=== PATIENT | female | born 2000 | race Caucasian/White ===

== ENCOUNTER 2021-05-25 19:08 | Inpatient (IN) | payer MEDICAID ==
[~2021-05-25] VITALS: Ht 154.9 cm; Wt 69.9 kg
[~2021-05-25 19:08] MED LIST: FERR325T6 MT; IBUP-2030 PO; PREN1TAB78 PO
[2021-05-26 00:40] LABS: BASOPHILS % 0.7 % (0.0-2.0); EOSINOPHILS % 1.8 % (0.0-5.0); HEMATOCRIT. 39.4 % (36.0-48.0); HEMOGLOBIN. 13.2 g/dL (12.0-16.0); LYMPHOCYTES % 27.8 % (20.0-50.0); MEAN CORPUSCULAR HEMOGLOBIN 28.2 pg (28.0-32.0); MEAN CORPUSCULAR VOLUME 84.4 fL (81.0-99.0); MONOCYTES % 9.1 % (2.0-8.0); NEUTROPHILS % 60.6 % (40.0-76.0); PLATELET 196 x1000/uL (130-400); RED BLOOD CELL COUNT 4.66 mill/uL (4.2-5.4); RED CELL DISTRIBUTION WIDTH 13.2 % (11.6-14.6)
[2021-05-26 00:49] LABS: CHLORIDE 110 mEq/L (98-107)
[2021-05-26 01:18] LABS: HCG SCREEN NEGATIVE
[2021-05-26] MEDS ORDERED: FAMOTIDINE 20MG/2ML VIAL IV STA (02:03)
[2021-05-26] MEDS ORDERED: ONDANSETRON HCL 4MG/2ML INJ IV STA (02:03)
[2021-05-26 02:13] LABS: CLARITY URINE CLEAR (CLEAR); COLOR URINE YELLOW (YELLOW); KETONES URINE NEGATIVE (NEGATIVE); LEUKOCYTE ESTERASE URINE NEGATIVE (NEGATIVE); NITRITE URINE NEGATIVE (NEGATIVE); OCCULT BLOOD URINE 3+ (NEGATIVE); PROTEIN URINE NEGATIVE (NEGATIVE); SPECIFIC GRAVITY URINE 1.019 (1.005-1.030)
[2021-05-26] MEDS ORDERED: SODIUM CHLORIDE 0.9% 1,000 ML IV ONE (02:15)
[2021-05-26] MEDS ORDERED: PIPERACILLIN/TAZ 3.375G PREMIX 50 ML IV ONE (03:15)
[2021-05-26] MEDS ORDERED: KETOROLAC 30MG/ML VIAL IV PRN (17:45)
[2021-05-26] MEDS ORDERED: ACETAMINOPHEN 325MG TABLET PO PRN (17:45)
[2021-05-26] MEDS: ONDANSETRON HCL 4MG/2ML INJ IV PRN (19:52)
[2021-05-26 22:00] VITALS: BP 109/80
[2021-05-27] VITALS: BP 99/45
[2021-05-27 04:00] VITALS: BP 99/63
[2021-05-27 06:29] LABS: CHLORIDE 109 mEq/L (98-107)
[2021-05-27] MEDS ORDERED: BUPIVACAINE HCL/PF 0.5% (5MG/ML) 10ML ONE (06:50)
[2021-05-27] MEDS ORDERED: POLYMYXIN B SULFATE 500000 UNITS/VIAL ONE (06:50)
[2021-05-27] MEDS ORDERED: LIDOCAINE HCL 1% 10 MG/ML 10ML VIAL ONE (06:50)
[2021-05-27] MEDS ORDERED: INDOCYANINE GREEN 25 MG VIAL IV ONE (06:50)
[2021-05-27] MEDS ORDERED: NEOSTIGMINE METHYLSULFATE 1MG/ML 10 ML VIAL ONE (07:58)
[2021-05-27] MEDS ORDERED: PHENYLEPHRINE HCL 10 MG/ML 1ML (IV VIAL) IV ONE (07:58)
[2021-05-27] MEDS ORDERED: SODIUM CHLORIDE 0.9% 10ML VIAL ONE (07:58)
[2021-05-27] MEDS ORDERED: METOCLOPRAMIDE HCL 10MG/2ML VIAL ONE (07:58)
[2021-05-27] MEDS ORDERED: SUCCINYLCHOLINE CHLORIDE 200MG/10ML IV ONE (07:58)
[2021-05-27] MEDS ORDERED: FENTANYL CITRATE/PF 50MCG/ML 2ML VIAL ONE ×2 (07:58→08:28)
[2021-05-27] MEDS ORDERED: DEXAMETHASONE 4MG/ML 1ML VIAL ONE (07:58)
[2021-05-27] MEDS ORDERED: PROPOFOL 200MG/20ML VIAL IV ONE (07:58)
[2021-05-27] MEDS ORDERED: MIDAZOLAM HCL 2 MG/2 ML VIAL ONE (07:58)
[2021-05-27] MEDS ORDERED: GLYCOPYRROLATE 0.2 MG/ML 2ML VIAL ONE (07:58)
[2021-05-27] MEDS ORDERED: CEFAZOLIN SODIUM 1000MG/VIAL ONE (07:58)
[2021-05-27] MEDS ORDERED: ONDANSETRON HCL 4MG/2ML INJ ONE (07:58)
[2021-05-27] MEDS ORDERED: ROCURONIUM BROMIDE 10MG/ML VIAL 5ML IV ONE (07:58)
[2021-05-27] MEDS ORDERED: SKIN ADHESIVE 0.7 GM EA TOP ONE (09:01)
[2021-05-27] MEDS ORDERED: KETOROLAC 30MG/ML VIAL ONE (09:25)
[2021-05-27] MEDS ORDERED: NALOXONE HCL 0.4MG/ML VIAL IV PRN (10:15)
[2021-05-27] MEDS ORDERED: HYDROCODONE/ACETAMINOPHEN 5/325MG TABLET PO PRN (10:15)
[2021-05-27] MEDS: ONDANSETRON HCL 4MG/2ML INJ IV PRN (11:15)
[2021-05-27 12:00] VITALS: BP 104/55
[2021-05-27 14:08] VITALS: BP 98/53
== END 2021-05-27 14:49 | disposition home or self-care (01) | DRG 263 ==
LOC: ER 19:08 → EDBEDREQ 05-26 05:34 → EDBEDREQTM 05-26 05:34 → ENRESERV 05-26 20:20 → 7EST 05-26 21:09
PROVIDERS: ADMIT Internal Medicine; ATTEND Internal Medicine
PROC: 0FT44ZZ Resection of Gallbladder, Percutaneous Endoscopic Approach (ICD-10-PCS; principal; 2021-05-27)
PROC: 8E0W4CZ Robotic Assisted Procedure of Trunk Region, Percutaneous Endoscopic Approach (ICD-10-PCS; 2021-05-27)
DX: K80.12 Calculus of gallbladder with acute and chronic cholecystitis without obstruction (principal); E87.8 Other disorders of electrolyte and fluid balance, not elsewhere classified; R74.01 Elevation of levels of liver transaminase levels; Z20.822 Contact with and (suspected) exposure to COVID-19; K82.8 Other specified diseases of gallbladder; Z98.891 History of uterine scar from previous surgery; Z79.1 Long term (current) use of non-steroidal anti-inflammatories (NSAID); Z79.899 Other long term (current) drug therapy
CPT/HCPCS: 36415; 76705; 80053; 81003; 81025; 83605; 84703; 85025; 87426; 88304; 96361; 96365; 96375; 99285; J0330; J0690; J1100; J1885; J2250; J2370; J2405; J2543; J2704; J2710; J2765; J3010; J3490; J7030; Q9957

== ENCOUNTER 2023-03-08 04:01 | Inpatient (IN) | payer MEDICAID ==
[~2023-03-08] VITALS: Ht 154.9 cm; Wt 72.6 kg
[2023-03-08] MEDS ORDERED: MISOPROSTOL 100MCG TABLET VG SCH (04:45)
[2023-03-08] MEDS ORDERED: METHYLERGONOVINE MALEATE 0.2 MG/ML IM PRN (04:45)
[2023-03-08] MEDS ORDERED: CARBOPROST TROMETHAMINE 250 MCG/ML AMPUL IM PRN (04:45)
[2023-03-08] MEDS ORDERED: RHO(D) IMMUNE GLOBULIN 300 MCG/SYR IM ONE (04:45)
[2023-03-08] MEDS ORDERED: NALOXONE HCL 0.4 MG/ML 1ML VIAL IM PRN (04:45)
[2023-03-08] MEDS: LACTATED RINGERS 1,000 ML IV NR ×2 (04:58→05:28)
[2023-03-08 05:00] LABS: BASOPHILS % 0.2 % (0.0-2.0); EOSINOPHILS % 0.9 % (0.0-5.0); HEMATOCRIT. 35.6 % (36.0-48.0); HEMOGLOBIN. 12.4 g/dL (12.0-16.0); LYMPHOCYTES % 21.4 % (20.0-50.0); MEAN CORPUSCULAR HEMOGLOBIN 30.2 pg (28.0-32.0); MEAN CORPUSCULAR HGB CONC 34.7 g/dL (31.0-37.0); MEAN CORPUSCULAR VOLUME 87.1 fL (81.0-99.0); MEAN PLATELET VOLUME 9.3 fl (7.4-10.4); MONOCYTES % 9.8 % (2.0-8.0); NEUTROPHILS % 67.7 % (40.0-76.0); PLATELET 192 x1000/uL (130-400); RED BLOOD CELL COUNT 4.09 mill/uL (4.2-5.4); RED CELL DISTRIBUTION WIDTH 15.2 % (11.6-14.6); WHITE BLOOD COUNT 8.2 x1000/uL (4.5-11.0)
[2023-03-08] MEDS ORDERED: MORPHINE SULFATE/PF 1MG/ML 10ML AMP ONE (05:11)
[2023-03-08] MEDS ORDERED: ONDANSETRON HCL 4MG/2ML INJ ONE (05:11)
[2023-03-08] MEDS ORDERED: CEFAZOLIN SODIUM 1000MG/VIAL ONE (05:11)
[2023-03-08] MEDS ORDERED: OXYTOCIN 10 UNITS/ML 1ML ONE ×2 (05:11→06:05)
[2023-03-08] MEDS ORDERED: DIPHENHYDRAMINE 50MG/ML VIAL ONE (05:11)
[2023-03-08 05:12] LABS: *AMPHETAMINES SCREEN URINE NEGATIVE (NEGATIVE); *BARBITURATES SCREEN URINE NEGATIVE (NEGATIVE); *BENZODIAZEPINES SCREEN URINE NEGATIVE (NEGATIVE); *COCAINE SCREEN URINE NEGATIVE (NEGATIVE); CANNABINOID URINE SCREEN NEGATIVE (NEGATIVE); ECSTASY MDMA SCREEN URINE NEGATIVE (NEGATIVE); METHADONE URINE SCREEN NEGATIVE (NEGATIVE); OPIATES URINE SCREEN NEGATIVE (NEGATIVE); PHENCYCLIDINE URINE SCREEN NEGATIVE (NEGATIVE)
[2023-03-08] MEDS ORDERED: SODIUM CHLORIDE 0.9% 10ML VIAL ONE (05:12)
[2023-03-08] MEDS ORDERED: PHENYLEPHRINE HCL 10 MG/ML 1ML (IV VIAL) IV ONE (05:12)
[2023-03-08] MEDS ORDERED: FENTANYL CITRATE/PF 50MCG/ML 2ML VIAL ONE (05:12)
[2023-03-08] MEDS ORDERED: EPHEDRINE SULFATE 50MG/ML VIAL ONE (05:12)
[2023-03-08 05:39] LABS: HEPATITIS B SURFACE ANTIGEN NEGATIVE; RUBELLA IGG 10.8 IU/mL (4.99-10)
[2023-03-08 05:50] LABS: RAPID HIV SCREEN NEGATIVE (NEGATIVE)
[2023-03-08] MEDS ORDERED: KETOROLAC 60MG/2ML VIAL IM ONE (05:54)
[2023-03-08 05:55] LABS: CLARITY URINE CLOUDY (CLEAR); COLOR URINE YELLOW (YELLOW); SPECIFIC GRAVITY URINE 1.025 (1.005-1.030)
[2023-03-08 05:58] LABS: PROTEIN URINE 2+ (NEGATIVE)
[2023-03-08 05:59] LABS: GLUCOSE URINE NEGATIVE (NEGATIVE)
[2023-03-08 06:18] LABS: KETONES URINE 2+ (NEGATIVE); NITRITE URINE POSITIVE (NEGATIVE); OCCULT BLOOD URINE 3+ (NEGATIVE)
[2023-03-08 06:19] LABS: LEUKOCYTE ESTERASE URINE 2+ (NEGATIVE); UROBILINOGEN URINE 0.2 E.U./dL (0.2-1.0)
[2023-03-08] MEDS ORDERED: NALOXONE HCL 0.4 MG/ML 1ML VIAL IV PRN (06:30)
[2023-03-08] MEDS ORDERED: KETOROLAC 30MG/ML VIAL IV SCH (06:30)
[2023-03-08] MEDS ORDERED: DIPHENHYDRAMINE 50MG/ML VIAL IV PRN (06:30)
[2023-03-08] MEDS ORDERED: DIPHENHYDRAMINE 25MG CAPSULE PO PRN (06:45)
[2023-03-08] MEDS ORDERED: BISACODYL 10MG SUPP PR PRN (06:45)
[2023-03-08] MEDS ORDERED: IBUPROFEN 400MG TABLET PO PRN (06:45)
[2023-03-08] MEDS ORDERED: HYDROMORPHONE HCL/PF 2MG/ML CPJ IM PRN (06:45)
[2023-03-08 07:27] LABS: INR 0.9; PARTIAL THROMBOPLASTIN TIME 24.6 sec (23.4-31.0); PROTHROMBIN TIME 9.9 sec (9.6-11.0)
[2023-03-08 07:36] LABS: BACTERIA URINE 3+; RBC URINE 15-25 /hpf (0-2); WBC URINE TNTC /hpf (0-2)
[2023-03-08 07:37] LABS: SQUAMOUS EPITHELIAL CELL URINE 1+ /lpf (RARE/1+); YEAST URINE NONE SEEN
[2023-03-08] MEDS: OXYTOCIN 30 UNITS/500ML NS PMX 500 ML IV SCH ×2 (09:24→13:37)
[2023-03-08 10:10] VITALS: BP 98/52; PULSE 79; RESP 18; TEMP 98.3; O2SAT 96
[2023-03-08 16:45] VITALS: BP 99/40; PULSE 96; RESP 18; TEMP 98.6
[2023-03-08 20:00] VITALS: BP 102/52; PULSE 90; RESP 18; TEMP 98.1; O2SAT 97
[2023-03-08 23:30] VITALS: BP 100/52; PULSE 84; RESP 18; TEMP 98.2
[2023-03-09] MEDS: IBUPROFEN 800MG TABLET PO PRN ×3 (02:51→20:54)
[2023-03-09 03:30] VITALS: BP 104/57; PULSE 76; RESP 18; TEMP 98.1
[2023-03-09 07:29] LABS: BASOPHILS % 0.5 % (0.0-2.0); HEMATOCRIT. 28.8 % (36.0-48.0); HEMOGLOBIN. 9.6 g/dL (12.0-16.0); LYMPHOCYTES % 26.2 % (20.0-50.0); MEAN CORPUSCULAR HEMOGLOBIN 29.9 pg (28.0-32.0); MEAN CORPUSCULAR HGB CONC 33.3 g/dL (31.0-37.0); MEAN CORPUSCULAR VOLUME 89.8 fL (81.0-99.0); MEAN PLATELET VOLUME 9.2 fl (7.4-10.4); NEUTROPHILS % 62.3 % (40.0-76.0); PLATELET 152 x1000/uL (130-400); RED BLOOD CELL COUNT 3.21 mill/uL (4.2-5.4); RED CELL DISTRIBUTION WIDTH 15.2 % (11.6-14.6); WHITE BLOOD COUNT 7.5 x1000/uL (4.5-11.0)
[2023-03-09 08:00] VITALS: BP 92/55; PULSE 72; RESP 18; TEMP 98.2; O2SAT 97
[2023-03-09] MEDS: PRENATAL VIT/FE FUMARATE/FA TABLET PO SCH (09:11)
[2023-03-09] MEDS: FERROUS SULFATE 325MG TABLET PO SCH ×2 (09:11→13:23)
[2023-03-09 16:00] VITALS: BP 101/60; PULSE 75; RESP 18; TEMP 98.8
[2023-03-09 20:25] VITALS: BP 111/71; PULSE 69; RESP 18; TEMP 98.9; O2SAT 96
[2023-03-10 03:45] VITALS: BP 92/54; PULSE 76; RESP 18; TEMP 98.4
[2023-03-10 08:00] VITALS: BP 101/68; PULSE 74; RESP 18; TEMP 98.3; O2SAT 97
[2023-03-10] MEDS: FERROUS SULFATE 325MG TABLET PO SCH ×3 (09:02→20:58)
[2023-03-10] MEDS: PRENATAL VIT/FE FUMARATE/FA TABLET PO SCH (09:03)
[2023-03-10] MEDS: IBUPROFEN 800MG TABLET PO PRN ×2 (09:52→20:58)
[2023-03-10 12:00] VITALS: BP 118/64; PULSE 68; RESP 18; TEMP 98.5
[2023-03-10 19:45] VITALS: BP 115/67; PULSE 71; RESP 18; TEMP 98.4; O2SAT 97
[2023-03-11 04:00] VITALS: BP 112/68; PULSE 73; RESP 18; TEMP 98.6
[2023-03-11 08:00] VITALS: BP 112/61; PULSE 78; RESP 18; TEMP 98.6; O2SAT 98
[2023-03-11] MEDS: FERROUS SULFATE 325MG TABLET PO SCH (09:02)
[2023-03-11] MEDS: PRENATAL VIT/FE FUMARATE/FA TABLET PO SCH (09:02)
[2023-03-11 09:04] VITALS: BP 112/61; PULSE 78; RESP 18
[2023-03-11] MEDS: IBUPROFEN 800MG TABLET PO PRN (09:04)
[2023-03-11] MEDS ORDERED: IBUP-2030 PO (14:42)
== END 2023-03-11 15:30 | disposition home or self-care (01) | DRG 540 ==
LOC: 8 EST LDRP 04:01 → OBSVTOIN 04:01 → 8 EST LDRP 04:48 → 8EST 10:33
PROVIDERS: ADMIT Obstetrics & Gynecology; ATTEND Obstetrics & Gynecology
PROC: 10D00Z1 Extraction of Products of Conception, Low, Open Approach (ICD-10-PCS; principal; 2023-03-08)
DX: O34.211 Maternal care for low transverse scar from previous cesarean delivery (principal); D62 Acute posthemorrhagic anemia; O69.81X0 Labor and delivery complicated by cord around neck, without compression, not applicable or unspecified; O99.02 Anemia complicating childbirth; Z37.0 Single live birth; Z3A.39 39 weeks gestation of pregnancy
CPT/HCPCS: 36415; 80305; 81003; 85025; 86592; 86703; 86762; 86850; 86900; 86920; 87340; 88307; 99281; J0690; J1200; J1885; J2274; J2370; J2405; J3010; J3490; A4315; J2590